=== PATIENT | female | born 1985 | race Caucasian/White ===

== ENCOUNTER 2020-01-26 14:14 | Emergency (ER) | payer OTHER, SELFPAY ==
--- NOTE | ~2020-01-26 | XR_ITS ---
EXAMINATION: XR foot LT min 3V DATE: 01/26/2020 14:55 INDICATION: Left foot injury and pain. Stepped on a nail. TECHNIQUE: 4 views of left foot were obtained. COMPARISON: None. FINDINGS: There is mild hallux valgus. No fracture. There is mild osteoarthritis of first metatarsoph alangeal joint. There are enthesophytes at the posterior and plantar aspects of calcaneal tuberosity. IMPRESSION: 1. No fracture or radiopaque foreign body. Reviewed, dictated and finalized at location A.
[2020-01-26 14:21] VITALS: BP 144/74; PULSE 98; RESP 18; TEMP 37.2; O2SAT 99
--- NOTE | 2020-01-26 14:38 | ED.GENADULT ---
HPI - General Adult General Chief complaint: Extremity Injury, Lower Stated complaint: left foot - stepped on nail Time Seen by Provider: 01/26/20 14:39 Source: patient Mode of arrival: ambulatory Limitations: no limitations History of Present Illness HPI narrative: 34-year-old female patient presents to the [facility] with complaints of a puncture wound to the left foot that happened yesterday. Patient states that she stepped on an old elida nail when she was clearing out some old brush outside. Patient states that her last tetanus shot was approximately 1 year ago. Patient states she has not a diabetic. Patient states it is very sore when she tries to put weight on her foot but has been walking around either on her heel or using some crutches to help her get around. Patient states that the nail did go when but did come out completely that she is aware of. Patient able to move toes of foot. Denies any numbness or tingling to the foot or toes. Denies taking anything for the pain today. Related Data Allergies Allergy/AdvReac Type Severity Reaction Status Date / Time No Known Allergies Allergy Verified 01/26/20 14:23 Review of Systems Review of Systems: Narrative: CONSTITUTIONAL: Denies fever, chills, or sweats. EYES: Denies visual changes, redness, or discharge. ENT: Denies rhinorrhea, congestion, sore throat, or otalgia. CARDIOVASCULAR: Denies chest pain, palpitations, or edema. RESPIRATORY: Denies cough or dyspnea. GASTROINTESTINAL: Denies abdominal pain, nausea, vomiting, or diarrhea. GENITOURINARY: Denies dysuria or hematuria. SKIN: Denies rash or itching. Positive puncture wound to left foot MUSCULOSKELETAL: Denies back pain, joint pain, or myalgia. NEUROLOGIC: Denies headache, numbness, or weakness. PSYCHIATRIC: Denies anxiety or depression. PMFSH Social History Social History Gender identity (if verbalized by the patient): Female Comments At the time of my signature I agree with nursing past medical history, surgical, social, and family history. There is no relevant family history pertinent to the presenting complaint. Exam Narrative: Exam Narrative: GENERAL: Well-appearing, well-nourished, and in no acute distress. HEAD: Normocephalic, atraumatic. EYES: PERRLA and EOMI. ENT: Nares clear, no rhinorrhea or epistaxis. Mucous membranes moist. NECK: Supple. No lymphadenopathy CHEST: Clear to auscultation. No respiratory distress. HEART: Regular rate and rhythm. No murmur heard. Normal peripheral pulses. ABDOMEN: Soft, nontender, nondistended, normal active bowel sounds. EXTREMITIES: Normal range of motion. No edema. SKIN: Warm, dry, no rash. Patient has a small puncture wound noted to the bottom of the left foot on the lateral side of the foot. There is no active bleeding or discharge noted. Slight erythema around the puncture wound. There is some tenderness noted on palpation. No warmth present NEURO: No focal deficits. Alert and oriented x3. Course Reevaluation(s) Reevaluation #1: Reevaluated patient after her x-ray had resulted. Notified her that her x-ray is negative for any retained foreign bodies in the foot. Discussed with her we will discharge her home with some antibiotics to help decrease risk of infection and encouraged her to do the warm Epson salt soaks as well. Patient verbalized understanding of this and denies any other questions or concerns at this time. Date: 01/26/20 Time: 15:05 Vital Signs Vital signs: Vital Signs Temperature 37.2 C 01/26/20 14:21 Pulse Rate 98 01/26/20 14:21 Respiratory Rate 18 01/26/20 14:21 Blood Pressure 144/74 H 01/26/20 14:21 Pulse Oximetry 99 01/26/20 14:21 Temperature 37.2 C 01/26/20 14:21 Pulse Rate 98 01/26/20 14:21 Respiratory Rate 18 01/26/20 14:21 Blood Pressure 144/74 H 01/26/20 14:21 Pulse Oximetry 99 01/26/20 14:21 Vital signs reviewed. The patient has been in
== END 2020-01-26 15:22 | disposition home or self-care (01) ==
PROVIDERS: Emergency Provider Nurse Practitioner Family
DX: S91.332A Puncture wound without foreign body, left foot, initial encounter (principal); W45.0XXA Nail entering through skin, initial encounter
CPT/HCPCS: 73630; 99203; G0463

== ENCOUNTER 2023-03-19 07:09 | Emergency (ER) | payer BC, SELFPAY ==
--- NOTE | ~2023-03-19 | XR_ITS ---
XR hand LT min 3V DATE: 03/19/2023 07:42 INDICATION: Cat bite of dorsal hand today TECHNIQUE: 3 views COMPARISON: None FINDINGS: There is polyarticular osteoarthritis with mild osteophytic change at the second metacarpop halangeal and multiple interphalangeal joints. No fracture or dislocation, periosteal reaction or bone destruction, radiopaque soft tissue foreign b riccardo or subcutaneous emphysema is noted. IMPRESSION: Mild polyarticular osteoarthritis Reviewed, dictated and finalized at location A.
[2023-03-19 07:14] VITALS: BP 147/84; PULSE 90; RESP 16; TEMP 36.8; O2SAT 99
--- NOTE | 2023-03-19 07:29 | ED.ANIMALBIT ---
HPI - Animal Bite General Chief Complaint: Animal Bite Stated Complaint: CAT BITE L HAND Time Seen by Provider: 03/19/23 07:25 History of Present Illness HPI narrative: This is a 37-year-old female (right-handed) with no significant past medical history, presenting to the emergency department after sustaining a cat bite to the back of her left hand. 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 She states the cat's vaccinations are up-to-date. She denies injury elsewhere. She denies pain to the back of the hand, loss of sensation or loss of strength. She states her last tetanus vaccination was in 2019. Related Data Home Medications Medication Instructions Recorded Confirmed loratadine 10 mg tablet (Claritin) 10 mg PO DAILY 03/19/23 03/19/23 Allergies Allergy/AdvReac Type Severity Reaction Status Date / Time Sulfa (Sulfonamide Allergy Blister Verified 03/19/23 07:19 Antibiotics) Review of Systems Review of Systems: CONSTITUTIONAL: Denies fever, chills, or sweats. CARDIOVASCULAR: Denies chest pain, palpitations, or edema. RESPIRATORY: Denies cough or dyspnea. GASTROINTESTINAL: Denies abdominal pain, nausea, vomiting, or diarrhea. SKIN: Laceration to the back of the left hand. Denies rash or itching. MUSCULOSKELETAL: Denies back pain, joint pain, or myalgia. PSYCHIATRIC: Denies anxiety or depression. PMFSH Past Medical History Medical History (Updated 03/19/23 @ 07:36 by Dawit Vera MD) No significant past medical history Surgical History Surgical History (Updated 03/19/23 @ 07:32 by Dawit Vera MD) No significant past surgical history Social History Social History (Updated 03/19/23 @ 07:33 by Dawit Vera MD) Smoking status: Never smoker Alcohol intake: current Drinks per week: 1 Substance use: never Gender identity (if verbalized by the patient): Female Exam Narrative: GENERAL: Well-developed, well-nourished, and in no acute distress. HEAD: Normocephalic, atraumatic. EYES: PERRLA and EOMI. CHEST: Clear to auscultation. No respiratory distress. No wheezes rales or rhonchi HEART: Regular rate and rhythm. No murmur heard. Normal peripheral pulses. EXTREMITIES: A linear, clean, 2 cm laceration is noted over the posterior aspect of the left hand approximately 3 cm proximal to the third MCP joint. There is a second 0.5 cm laceration approximately 1 cm proximal to the left fourth MCP. There is no visible bone or tendon. There is no noted erythema, active bleeding or purulent drainage. Normal range of motion. No edema. SKIN: Warm, dry, no rash. NEURO: No focal deficits. Alert and oriented x3. Normal sensation in the bilateral hands. Physical Chemist strength normal bilaterally PSYCH: Normal mood and affect. Course Course Emergency Course: 07:57 - My review of the patient's x-ray is not concerning for retained foreign object or fracture. Will discharge with amoxicillin and recommendation to follow-up with her primary care doctor. Discussed return and emergency precautions including signs/symptoms of wound infection. The patient voiced understanding and is comfortable with the plan. All questions answered to her satisfaction. Vital Signs Vital signs: Vital Signs Temperature 98.2 F 03/19/23 07:14 Pulse Rate 90 03/19/23 07:14 Respiratory Rate 16 03/19/23 07:14 Blood Pressure 147/84 H 03/19/23 07:14 Pulse Oximetry 99 03/19/23 07:14 Oxygen Delivery Room Air 03/19/23 07:14 Temperature 98.2 F 03/19/23 07:14 Pulse Rate 90 03/19/23 07:14 Respiratory Rate 16 03/19/23 07:14 Blood Pressure 147/84 H 03/19/23 07:14 Pulse Oximetry 99 03/19/23 07:14 Oxygen Delivery Room Air 03/19/23 07:14 Procedures Laceration Laceration 1: Date: 03/19/23 Time: 07:58 Site: hand Side (If applicable): left Size (cm): 2 Descripti
== END 2023-03-19 08:11 | disposition home or self-care (01) ==
PROVIDERS: Emergency Provider Preventive Medicine Aerospace Medicine; PCP Family Medicine
DX: S61.452A Open bite of left hand, initial encounter (principal); W55.01XA Bitten by cat, initial encounter
CPT/HCPCS: 12001; 73130; 99283